=== PATIENT | female | born 1950 | race Caucasian/White ===

== ENCOUNTER → 2016-12-20 | Outpatient (CLI) | payer MEDICARE ==
[~2016-12-20] MED LIST: DENOSUMAB 60 MG/ML 1 ML SYRINGE SQ ONE
[2016-12-20 08:28] VITALS: BP 115/67; PULSE 72; RESP 16; TEMP 98.1
== END | disposition home or self-care (01) ==
LOC: PROCWHC3 07:35
PROVIDERS: ATTEND Physician Assistant Medical
DX: M81.0 Age-related osteoporosis without current pathological fracture (principal)
CPT/HCPCS: 96372; J0897

== ENCOUNTER → 2017-08-08 | Outpatient (CLI) | payer MEDICARE ==
[2017-08-08 10:31] VITALS: RESP 16
[2017-08-08 10:37] VITALS: BP 99/59; PULSE 84; TEMP 98
== END | disposition home or self-care (01) ==
LOC: PROCWHC3 10:24
PROVIDERS: ATTEND Family Medicine
DX: M81.0 Age-related osteoporosis without current pathological fracture (principal)
CPT/HCPCS: 96372; J0897

== ENCOUNTER → 2018-03-13 | Outpatient (CLI) | payer MEDICARE ==
[2018-03-13 13:44] VITALS: BP 99/52; PULSE 83; RESP 16; TEMP 97.4
== END | disposition home or self-care (01) ==
LOC: PROCWHC3 13:23
PROVIDERS: ATTEND Family Medicine
DX: M81.0 Age-related osteoporosis without current pathological fracture (principal)
CPT/HCPCS: 96372; J0897

== ENCOUNTER → 2018-08-08 | Day surgery (SDC) | payer MEDICARE ==
[2018-08-01 15:11] VITALS: BMI 17.2
[~2018-08-08] MED LIST changes: -DENOSUMAB 60 MG/ML 1 ML SYRINGE SQ ONE; +DEXAMETHASONE SOD PHOSPHATE 10 MG/ML 1 ML VIAL IV ONE; +HYDROmorphone (PF) 1 MG/ML ONE; +HYDROmorphone 0.5 MG/0.5 ML SYRINGE IVP PRN; +LACTATED RINGERS 1,000 ML IV ONE; +LACTATED RINGERS 1,000 ML IV SCH; +LIDOCAINE 1% 20 ML VIAL (10MG/ML) FOR IV START INTRADERMA PRN; +LIDOCAINE 1% INJ 10MG/ML (20 ML MDV) ONE; +LIDOCAINE 2%-EPI 1:100,000 20 ML VIAL ONE; +MIDAZOLAM 2 MG/2 ML VIAL IV PRN; +ONDANSETRON 4 MG/2 ML VIAL IVP ONE; +PHENYLEPHRINE-0.9% NACL SYG 1 MG/10 ML SYRINGE ONE; +PROPOFOL 10 MG/ML 20 ML VIAL IV ONE; +ROPIVACAINE 5 MG/ML 30 ML VIAL ONE; +SCOPOLAMINE 1.5MG/72HR PATCH TRANSDERM ONE; +SUCCINYLCHOLINE CHLORIDE 100 MG/5 ML SYR IV ONE; +ceFAZolin IN SWFI 2 GM/20 ML SYRINGE IVP ONE; +ePHEDrine SULFATE/0.9% NACL/PF 50 MG/5 ML SYRINGE IV ONE; +fentaNYL (PF) 50 MCG/ML 2 ML AMP IV ONE
--- NOTE | 2018-08-08 13:02 | P.ONQ ---
Anesthesiology Proc Note - PNB - Peripheral Nerve Block Performed Left Other (see comment) Time Out Performed: Yes Procedure Start Time: 12:02 Procedure Stop Time: 12:10 Indication: Acute Post-Operative Pain, Analgesia, Requested by physician Sedation Type: Sedate with meaningful contact maintained Preparation: Sterile Prep Position: Supine Catheter: None Needle Types: On-Q Needle Size: 50mm (2") Needle Gauge: 21 Technique: Ultrasound Injectate: Other (see comment) (0.5% ropivacaine with lidocaine 2% (10cc of each medication at each site)) Blood Aspirated: No Pain Paresthesia on Injection Noted: No Resistance on Injection: Normal Events: Uneventful and Well Tolerated
--- NOTE | 2018-08-08 15:16 | XR ---
Fluoroscopy INDICATION: Pain FINDINGS: Images obtained: 3. IMPRESSIONS: 1. Documentation of fluoroscopy.
--- NOTE | 2018-08-08 15:16 | FL ---
Fluoroscopy INDICATION: Pain FINDINGS: Fluoroscopy time: 3 minutes 7 seconds. Images obtained: 3. IMPRESSIONS: 1. Documentation of fluoroscopy.
[2018-08-08 15:48] VITALS: TEMP 97
[2018-08-08 17:04] VITALS: BP 120/70; PULSE 69; RESP 17
--- NOTE | 2018-08-12 13:17 | OP ---
OPERATIVE REPORT DATE OF SURGERY: 08/08/2018. PREOPERATIVE DIAGNOSES: 1. Left hyper mobile hallux valgus. 2. 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 3. History of smoking, having quit 2 months prior to surgery. POSTOPERATIVE DIAGNOSES: 1. Left hyper mobile hallux valgus. 2. 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 3. History of smoking, having quit 2 months prior to surgery. 4. Severe osteopenia and poor bone quality. PROCEDURE PERFORMED: 1. Correction of hallux valgus deformity with modified Lapidus procedure. 2. Correction of left 2nd crossover toe deformity with extensor tendon lengthening. 3. Application of short-leg splint by physician. SURGEON: Dr. Kevin Magdaleno. CREATIVE SERVICES PRODUCER: Bimal Fishman (Lori CRUZ was required as a skilled cataloging assistant for patient positioning, surgical exposure, correction of deformity, placement of hardware, closure of wound and application of splint). ANESTHESIA: General plus popliteal and saphenous nerve block. FLUIDS: 1200 mL crystalloid. BLOOD LOSS: Less than 5 mL. INDICATION: The patient is a very pleasant, previously healthy 68-year-old female with a medical history significant for smoking. I met with the patient earlier this fall for a painful hallux valgus deformity. Due to the patient's smoking, I recommended nonsurgical treatment unless she could quit smoking. The patient was able to quit smoking and after 2 months, she presented to my office to discuss surgical fixation of her hallux valgus. Since she had quit smoking for greater than 2 months, and she has failed over 6 months of nonsurgical treatment and is having significant pain and deformity from her hallux valgus, I think it is reasonable to proceed with surgery. We discussed different surgical options. We discussed, due to her deformity and hypermobility, my recommendation would be to perform a correction with modified Lapidus procedure. We discussed potential risks and complications of surgery including but not limited to risk of anesthesia, superficial infection, deep infection, delayed wound healing, nonunion of the fusion site, malunion of the fusion site, over correction of the deformity, under correction of the deformity, ongoing or worsening pain and inability to regain pre-injury level of function, symptomatic hardware, need for further surgery, DVT, PE, other medical complications, and possible loss of life or limb. The patient understands that if she resumes smoking, she is at a significantly increased risk of having complication. The patient provided her verbal and written consent to go forward with surgery. Acknowledging these risks and also acknowledges that there are other less common risks possible. DESCRIPTION OF THE PROCEDURE: The patient was identified in preoperative holding. The correct left leg was marked with my initials. I reviewed the consent form with the patient, her . All their questions were answered. The patient was then given a popliteal and saphenous nerve block by anesthesia. She was brought back to the operating room, positioned on the OR table. A general anesthetic and preoperative antibiotics were administered. A tourniquet was applied to the proximal aspect of the left leg. A bump was placed under the left buttock internally rotating the leg to neutral. The left leg was then prepped and draped in the standard sterile fashion. Prior to starting surgery, a time-out was performed identifying the correct patient, operative extremity, and procedure. The patient's leg was then elevated, exsanguinated with an Esmarch bandage and the tourniquet was inflated to 250 mmHg. I began by outlining a longitudinal incision directly over the 1st tarsometatarsal joint just medial to the EHL tendon. Skin incision made with a scalpel. Dissection was carried down carefully through the subcutaneous tissue with tenotomy scissors, taking care to not undermine the incision. The EHL tendon sheath was incised longitudinally in line with the skin incision and the EHL was retracted laterally. The capsule over the dorsal aspect of the 1st TMT joint was sharply elevated. A stab pocket was made just medial to the base of the 1st metatarsal for placement of the fulcrum. Attention was then turned distally to the 1st MTP joint. A 1 cm incision was made in the 1st web webspace. Dissection was carried down to the lateral aspect of the 1st MTP joint. A lateral release was performed releasing the lateral capsule and sesamoid suspensory ligament. A varus force was applied to the big toe nicely correcting and releasing the hallux valgus deformity. A K-wire was then placed at the base of the 1st metatarsal. I was able to gently correct the 1-2 intermetatarsal angle with minimal pressure. At this point, the pin started breaking through the 1st metatarsal base due to the patient's extremely poor bone quality. The cut guide was then placed over the 1st TMT joint to use as a marker and a stab incision was made just distal to the cut guide between the shafts of the 2nd and 3rd metatarsal. Blunt dissection was carried down through the subcutaneous tissue. The 1-2 intermetatarsal reduction clamp was then placed with the medial plastic sleeve over the 1st metatarsal and the lateral arm over the medial shaft of the 2nd metatarsal. Using the joystick in the 1st metatarsal base, I gently rotated the 1st metatarsal and when rotation was corrected, I tightened the 1-2 intermetatarsal reduction clamp nicely reducing the intermetatarsal angle and hallux valgus deformity. A K-wire was then placed. The joint seeker was placed in the lateral aspect of the 1st TMT joint. The low angle cut guide was placed and then pinned. A saw was used to remove the articular cartilage from the base of the 1st metatarsal and medial cuneiform. The cut guide was then removed. The joint distractor was then placed and and gentle distraction of the joint was attempted. Once again, the patient had significantly poor bone quality and the pin started pulling through her bone. The cut bone was then gently removed and the joint irrigated. All the bony debris was removed. I then used a 2.0 mm drill bit to thoroughly perforate the exposed bony surfaces of the fusion site. I then attempted to gently compress with the compression guide, but again due to her severely poor bone quality. I was unable to generate any significant compression with the compression device. I manually held the joint reduced and placed a K-wire for a cannulated partially-threaded 3-0 screw. A 36 mm partially-threaded 3.0 mm screw was placed across the joint. There were some compression achieved across the joint, but once again due to her severely poor bone quality, I did not try to push compression with the screw for fear of breaking the 1st metatarsal base. I then placed a dorsal and medial plate over the 1st TMT joint. X-rays were taken showing correction of the hallux valgus deformity, but a slight gap at the 1st tarsometatarsal joint. Due to the patient's poor bone quality, I left the hardware in place for fear of causing further iatrogenic damage to the joint. The bone graft was taken from the cut surface of the bone and packed in the fusion site to fill any voids. Clinically the toe appeared straight with only a small medial eminence. A small incision was made over the medial eminence of the 1st MTP joint. The capsule was sharply incised and a small microsagittal saw was used to contour the 1st metatarsal head. A small amount of the capsule was excised and the 1st MTP joint was imbricated to further correct the hallux valgus deformity. Clinically, the toe appeared straight. Fluoroscopic images showed coverage of the sesamoids and reduction of the intermetatarsal angle. At this point, there was only mild extension deformity of the 2nd toe. A small incision was made directly over the extensor tendon and a Z-lengthening was performed followed by an MTP capsulotomy. This allowed the toe to be positioned with the other toes. Final fluoroscopic images were taken. The wound was copiously irrigated and closed in layers. Due to the patient's poor bone quality, I elected to place her in a plaster splint. She was placed in a bulky Hensley splint with the ankle in neutral. She was then awoken from her anesthetic, transferred from the OR table to a gurney, brought back to PACU having tolerated the procedure well. MMODL / IJN: [id number] /
== END | disposition home or self-care (01) ==
LOC: OR 10:31
PROVIDERS: ATTEND Orthopaedic Surgery
DX: M20.12 Hallux valgus (acquired), left foot (principal); M20.5X2 Other deformities of toe(s) (acquired), left foot; M85.872 Other specified disorders of bone density and structure, left ankle and foot; E78.5 Hyperlipidemia, unspecified; Z87.891 Personal history of nicotine dependence; J43.9 Emphysema, unspecified; E07.9 Disorder of thyroid, unspecified; Z90.710 Acquired absence of both cervix and uterus; M81.0 Age-related osteoporosis without current pathological fracture; K21.9 Gastro-esophageal reflux disease without esophagitis; Z79.890 Hormone replacement therapy; Z79.899 Other long term (current) drug therapy
CPT/HCPCS: 64450; 73630; 28750; 28270; C1713; J2250; J1100; J2405; J2001; J3010; J1170; J2795; J2370; J0330; J2704; J0690

== ENCOUNTER → 2020-05-04 | Outpatient (CLI) | payer MEDICARE ==
--- NOTE | 2020-05-04 12:56 | NM ---
EXAMINATION TYPE: NM stress cardiolite complete DATE OF EXAM: 05/04/2020 COMPARISON: NONE HISTORY: Precordial chest pain and abnormal EKG TECHNIQUE: After the intravenous administration of 8.97 mCi Tc 99m Sestamibi - Rest images obtained 45 minutes post injection. The patient exercised using a BIENVENIDO protocol and 1 minute prior to peak exercise was injected with 24.5 mCi Tc 99m Sestamibi - Stress images obtained 35 minutes post injecti on. FINDINGS: Targeted heart rate was achieved during performance of the study. Review of stress and rest SPECT eliot ges demonstrates no distinct perfusion abnormality. Gated analysis shows normal wall motion with an estimated left ventricular ejection fraction of 79 %. IMPRESSION: No scintigraphic evidence for reversible ischemia
--- NOTE | 2020-05-05 12:19 | ECHOF ---
Referral Reason:R07.9 chest pain MEASUREMENTS -------- HEIGHT: 157.5 cm WEIGHT: 51.7 kg BP: RVIDd: 3.2 cm (< 3.3) IVSd: 1.0 cm (0.6 - 1.1) LVIDd: 3.3 cm (3.9 - 5.3) LVPWd: 1.0 cm (0.6 - 1.1) IVSs: 1.3 cm LVIDs: 2.1 cm LVPWs: 1.2 cm LAESV Index (A-L): 13.59 ml/m Ao Diam: 3.0 cm (2.0 - 3.7) AV Cusp: 1.8 cm (1.5 - 2.6) MV EXCURSION: 16.865 mm (> 18.000) MV EF SLOPE: 80 mm/s (70 - 150) EPSS: 0.8 cm MV E Mak: 0.91 m/s MV DecT: 236 ms MV A Mak: 1.10 m/s MV E/A Ratio: 0.83 RAP: 5.00 mmHg RVSP: 30.03 mmHg FINDINGS -------- This was a technically adequate study. The left ventricular size is normal. Left ventricular wall thickness is normal. Overall left vent ricular systolic function is normal with, an EF between 55 - 60 %. The diastolic filling pattern is normal for the age of the patient 12.66. The right ventricle is mildly enlarged. Normal LA size by volume 22+/-6 ml/m2. The right atrial size is normal. Interatrial and interventricular septum intact. The aortic valve is trileaflet and appears structurally normal. There is no evidence of aortic regu rgitation. There is no evidence of aortic stenosis. Mild mitral regurgitation is present. Mild tricuspid regurgitation present. There is no evidence of pulmonary hypertension. The right v entricular systolic pressure, as measured by Doppler, is 30.03mmHg. There is no pulmonic regurgitation present. The aortic root size is normal. Normal inferior vena cava with normal inspiratory collapse consistent with estimated right atrial pre ssure of 5 mmHg. There is no pericardial effusion. CONCLUSIONS -------- 1. The left ventricular size is normal. 2. Left ventricular wall thickness is normal. 3. Overall left ventricular systolic function is normal with, an EF between 55 - 60 %. 4. The right ventricle is mildly enlarged. 5. Mild mitral regurgitation is present. 6. Mild tricuspid regurgitation present. DEMOLITION CRANE OPERATOR: Tracy Davis RDCS
--- NOTE | 2020-05-05 15:58 | EST ---
EXERCISE STRESS AGE: 70 SEX: F HT: 5'2" WT: 114 lbs. PROTOCOL: Shayne STAGE: 2 DURATION OF EXERCISE: 4:32 HEART RATE REST: 69 BLOOD PRESSURE REST: 148/85 MAXIMUM HEART RATE ACHIEVED: 128 MAXIMUM BLOOD PRESSURE: 187/112 85% MPHR: 128 100% MPHR: 151 METS: 6.1 INDICATIONS: Chest pain. CLINICAL INFORMATION: Baseline heart rate is 69 beats per minute. Baseline blood pressure 148/85 mmHg. Baseline 12-lead ECG shows sinus rhythm with normal ST segments. Patient exercised on a Shayne protocol for 4-1/2 minutes achieving a peak heart rate of 128 beats per minute. There is a 0.5-[address] depression inferolaterally at peak exercise and into recovery. No symptoms were noted. IMPRESSION: Very low average exercise capacity with borderline 0.5-[address]-depression during peak exercise and recovery. MMANTELMOL / IJN: [id number] /
== END | disposition home or self-care (01) ==
LOC: RADNMMAIN 08:43
PROVIDERS: ATTEND Family Medicine
DX: I08.1 Rheumatic disorders of both mitral and tricuspid valves (principal)
CPT/HCPCS: 93017; 93306; 78452; A9500

== ENCOUNTER → 2023-03-19 | Outpatient (CLI) | payer MEDICARE ==
--- NOTE | 2023-03-19 15:04 | CTL ---
EXAMINATION TYPE: CT Low Dose Lung DATE OF EXAM: 03/19/2023 2:18 PM CLINICAL INDICATION:Female, 73 years old with history of Z87.891 personal hx of tobacco use; former s moker, quit 2 years ago. smoked 1/2 pack a day x 40years , history of tobacco use. COMPARISON: None. TECHNIQUE: Multiple axial non-contrast scans were obtained from approximately the lung apices through the upper abdomen. Coronal and sagittal reformatted images were obtained. Low dose technique was uti lized. CT DLP: 44.40 mGycm, Automated exposure control for dose reduction was used. CT Contrast: Contrast used: None Oral contrast used: None FINDINGS: ======== Lack of intravenous contrast and low dose technique limits the evaluation of the vascular and soft ti ssue structures. LUNGS: No evidence of pulmonary fibrosis. No evidence of focal consolidation, pneumothorax or pleural effusion. Centrilobular emphysema changes are seen throughout the lungs. Nodules: RUL: None. RML: None. RLL: Somewhat spiculated nodule measuring 11 x 8 mm. Series 4 image 112. SHAWNA: None. LLL: 3 mm image 139, 5 mm image 205 AIRWAY: Patent and unremarkable. HEART: Size within normal limits. MEDIASTINUM: No gross evidence of adenopathy. VASCULATURE: No aortic aneurysm. MUSCULOSKELETAL: No acute osseous abnormalities SOFT TISSUES/LYMPH NODES: Unremarkable. LOWER NECK: No significant findings. UPPER ABDOMEN: No significant findings. IMPRESSION: 1. Spiculated right lower lobe 11 x 8 mm pulmonary nodule, three-month follow-up versus PET/CT is re commended. 2. Left lower lung nodule measuring 5 mm. 3. Aavq-uf-nvorqjip emphysema CT LUNG RAD AND CT CHEST RECOMMENDATION: Lung-Rad 4A Suspicious: Follow-up 3 month LDCT or PET/CT may be used when there is a > 8 mm solid component. S Modifier (other clinically significant findings): None Recommend smoking cessation (if current smoker), or continuation of smoking cessation (if prior smoke r). Annual screening for lung cancer with low-dose computed tomography is recommended in adults ages 55 to 77 years who have a 30 pack-year smoking history and currently smoke or have quit within the pa st 15 years. Screening should be discontinued once a person has not smoked for 15 years or develops a health problem that substantially limits life expectancy or the ability or willingness to have curat itzel lung surgery.
== END | disposition home or self-care (01) ==
LOC: RADCTMAIN 13:33
PROVIDERS: ATTEND Family Medicine
DX: Z12.2 Encounter for screening for malignant neoplasm of respiratory organs (principal); J43.2 Centrilobular emphysema; Z87.891 Personal history of nicotine dependence; R91.8 Other nonspecific abnormal finding of lung field
CPT/HCPCS: 71271

== ENCOUNTER → 2023-09-03 | Outpatient (CLI) | payer MEDICARE ==
[2023-09-03 12:50] LABS: African American GFR (CKD) 77 (>60 ml/min/1.73 sqM); Blood Urea Nitrogen 26 mg/dL (7-17); Non-African American GFR(CKD) 67 (>60 ml/min/1.73 sqM)
--- NOTE | 2023-09-03 13:46 | CT ---
EXAMINATION TYPE: CT chest w con DATE OF EXAM: 09/03/2023 COMPARISON: PET/CT 04/19/2023 HISTORY: f/u pulmonary nodule CT DLP: 112.60 mGycm, Automated exposure control for dose reduction was used. CONTRAST: Performed injected with 90ml mL of Isovue 300. TECHNIQUE: Axial images were obtained at 5 mm thick sections. Reconstructed images are reviewed on Cardiio computer in the coronal plane. FINDINGS: Portion of the thyroid visualized is normal. There is a 0.6 cm nodule in the periphery of the lateral left lower lobe. Series 4 image 43. There is a prominent 1.1 cm lymph node in the pretracheal space or left peribronchial region. Series 3 image 22. Previous measurement of 0.9 cm. Additional smaller shotty lymphadenopathy is present. Th e ascending aorta diameter at the level of the main pulmonary artery is 3.2 cm. The main pulmonary a rtery diameter at the bifurcation is 2.3 cm. Minimal pericardial effusion is present. Limited CT sections are obtained through the upper abdomen. Abdomen is essentially unremarkable. IMPRESSION: 1. Prominent, slightly enlarged from comparison, lymph node within the mediastinum. 2. Stable appearing 0.6 cm nodule peripheral left lower lobe.
== END | disposition home or self-care (01) ==
LOC: RADCTMAIN 12:09
PROVIDERS: ATTEND Internal Medicine Critical Care Medicine
DX: R91.1 Solitary pulmonary nodule (principal); R59.0 Localized enlarged lymph nodes
CPT/HCPCS: 82565; 84520; 71260; 36415; Q9967

== ENCOUNTER → 2024-03-04 | Outpatient (CLI) | payer MEDICARE ==
[2024-03-04 10:56] LABS: African American GFR (CKD) 72 (>60 ml/min/1.73 sqM); Blood Urea Nitrogen 18 mg/dL (7-17); Non-African American GFR(CKD) 63 (>60 ml/min/1.73 sqM)
--- NOTE | 2024-03-04 11:41 | CT ---
EXAMINATION TYPE: CT chest w con CT DLP: 371 mGycm, Automated exposure control for dose reduction was used. DATE OF EXAM: 03/04/2024 11:21 AM COMPARISON: CT chest 09/03/2023, PET/CT 04/19/2023, CT low-dose lung 03/19/2023. CLINICAL INDICATION:Female, 74 years old with history of R91.1 SOLITARY PULMONARY NODULE; [facility], f/u no allisones TECHNIQUE: Multiple axial images were obtained through the chest following the administration of 100 cc of Isovue 300. . Coronal and sagittal reformats reviewed. FINDINGS: LUNGS/ PLEURA: No pleural effusion, pneumothorax, focal consolidation. Linear scarring identified wit hin the right midlung. Mild centrilobular emphysematous changes. Stable 3 mm pulmonary nodule within the medial aspect of the left lower lobe (series 4, image 24). Stable left lateral lower lobe 5 mm p ulmonary nodule (series 4, image 42). Previously seen spiculated right lower lobe pulmonary nodule is no longer visualized. No right perihilar mass identified corresponding to previous PET/CT. No new or enlarging pulmonary nodules. AIRWAY: Patent and unremarkable.. HEART: Size within normal limits. No pericardial effusion. MEDIASTINUM: Stable enlarged subcarinal lymph node measuring 1.3 cm short axis (series 3, image 27). Stable enlarged left paratracheal lymph node measuring 1.1 cm short axis (series 3, image 22). No new lymphadenopathy. VASCULATURE: No aortic aneurysm. MUSCULOSKELETAL: No acute osseous abnormalities. No aggressive osseous lesions. Multilevel degenerati ve disc disease. SOFT TISSUES/LYMPH NODES: Unremarkable. LOWER NECK: No significant findings. UPPER ABDOMEN: Stable left periaortic mild prominent lymph nodes measuring up to 9 mm short axis (ser ies 3, image 60). IMPRESSION: Overall unchanged examination with mildly enlarged mediastinal lymph nodes and stable few pulmonary n odules measuring up to 5 mm. No new or enlarging pulmonary nodules.
== END | disposition home or self-care (01) ==
LOC: RADCTMAIN 09:57
PROVIDERS: ATTEND Internal Medicine Critical Care Medicine
DX: R91.1 Solitary pulmonary nodule (principal); R91.8 Other nonspecific abnormal finding of lung field; R59.0 Localized enlarged lymph nodes
CPT/HCPCS: 82565; 84520; 71260; 36415; Q9967

== ENCOUNTER → 2024-06-05 | Outpatient (CLI) | payer MEDICARE ==
--- NOTE | 2024-06-08 12:41 | MM ---
Reason for Exam: Screening (asymptomatic). Patient History: Menarche at age 15. First Full-Term at age 22. Hysterectomy at age 31. Postmenopausal. Risk Values: Lina 5 year model risk: 1.4%. NCI Lifetime model risk: 3.6%. Prior Study Comparison: No prior studies available for comparison. Tissue Density: There are scattered areas of fibroglandular density. Findings: Analyzed By CAD. Right breast: Multiple masses are seen in the right breast the first upper outer aspect 8.8 cm the nipple measuring 7 mm. second posterior nipple line 1.7 cm from the nipple measuring 7 mm. The third 4.7 cm the nipple in the inferior medial aspect measuring 9 mm. Left breast: There is no suspicious group of microcalcifications or new suspicious mass. Overall Assessment: Incomplete: need additional imaging evaluation, BI-RAD 0 Management: Diagnostic Breast Ultrasound of the right breast. [facility] will attempt to contact patient to return for supplemental views and ultrasound if indicated. Patient should continue monthly self-breast exams. A clinical breast exam by your physician is recommended on an annual basis. This exam should not preclude additional follow-up of suspicious palpable abnormalities. Note on Lina scores and lifetime risk: 1. A Lina score greater than 3% is considered moderate risk. If this is the case, consider specialist referral to assess eligibility for a risk reducing agent. 2. If overall lifetime risk for the development of breast cancer is 20% or higher, the patient may qualify for future screening with alternating mammogram and breast MRI. [facility], , 06/08/2024 12:38 PM. Electronically signed and approved by: Misbah Napier DO
== END | disposition home or self-care (01) ==
LOC: RADMAMWWP 07:58
PROVIDERS: ATTEND Family Medicine
CPT/HCPCS: 77063; 77067

== ENCOUNTER → 2024-06-11 | Outpatient (CLI) | payer MEDICARE ==
--- NOTE | 2024-06-11 09:20 | USB ---
Reason for Exam: Additional evaluation requested from abnormal screening. Patient History: Menarche at age 15. First Full-Term at age 22. Hysterectomy at age 31. Postmenopausal. Risk Values: Lina 5 year model risk: 1.4%. NCI Lifetime model risk: 3.6%. Technique: Method: Targeted. Doppler: Color. Patient Position: LPO. Prior Study Comparison: 06/05/2024 Bilateral MG 3D screening mammo w/cad, [facility]. Findings: The upper outer quadrant of the right breast, the upper inner quadrant of the right breast, the lateral section of the breast of the right breast, the periareolar of the right breast, the axilla of the right breast and the retroareolar of the right breast were scanned. Targeted ultrasound left breast 3-4 o'clock, upper outer quadrant, behind the nipple, and axilla. In the superior subareolar region labeled 12:00, 2 cm from the nipple, there is a circumscribed, oval hypoechoic structure with posterior through transmission measuring 7 x 6 x 4 mm this should be reassessed at follow-up, likely mammographic correlate. At the 3:00 position, 1 cm from the nipple, there is a cyst cluster measuring 9 x 7 x 8 mm, mammographic correlate for which follow-up is recommended. At the 4:00 position, 4 cm from the nipple, there is a 3 mm hypoechoic lesion too small to characterize, likely tiny cyst and likely mammographic correlate. No abnormality identified at the 9:00 position to correspond to the mammographic density. Benign appearing axillary lymph nodes. Overall Assessment: Incomplete: need additional imaging evaluation, BI-RAD 0 Management: Special View Mammogram of the right breast. For further workup of the 9:00 focal asymmetry [facility], , 06/11/2024 9:17 AM. Electronically signed and approved by: Rebecca Rao M.D. Radiologist
--- NOTE | 2024-06-11 09:56 | MM ---
Reason for Exam: Additional evaluation requested from abnormal screening. Last screening mammogram was performed less than 1 month ago. Patient History: Menarche at age 15. First Full-Term at age 22. Hysterectomy at age 31. Postmenopausal. Risk Values: Lina 5 year model risk: 1.4%. NCI Lifetime model risk: 3.6%. Prior Study Comparison: 06/05/2024 Bilateral MG 3D screening mammo w/cad, [facility]. Tissue Density: Right: There are scattered areas of fibroglandular density. Findings: Analyzed By CAD. Subareolar anterior nodularity, 3:00 middle depth nodularity, and smaller 4 mm posterior nodularity are all redemonstrated on the lateral view. The question nodular focal asymmetry posterior ninth and 10:00 becomes less defined and appears to disperse suggesting focal fibroglandular tissue. Follow-up of nodularity recommended. Overall Assessment: Probably benign, BI-RAD 3 Management: Diagnostic Mammogram of the right breast in 6 months. Diagnostic Breast Ultrasound of the right breast in 6 months. Results were given to the patient verbally at the time of exam. Patient should continue monthly self-breast exams. A clinical breast exam by your physician is recommended on an annual basis. This exam should not preclude additional follow-up of suspicious palpable abnormalities. Note on Lina scores and lifetime risk: 1. A Lina score greater than 3% is considered moderate risk. If this is the case, consider specialist referral to assess eligibility for a risk reducing agent. 2. If overall lifetime risk for the development of breast cancer is 20% or higher, the patient may qualify for future screening with alternating mammogram and breast MRI. [facility], , 06/11/2024 9:46 AM. Electronically signed and approved by: Rebecca Rao M.D. Radiologist
== END | disposition home or self-care (01) ==
LOC: RADUSWWP 08:42
PROVIDERS: ATTEND Family Medicine
CPT/HCPCS: 77061; 77065

== ENCOUNTER → 2024-12-02 | Outpatient (CLI) | payer MEDICARE ==
[2024-12-02 10:17] LABS: African American GFR (CKD) >90 (>60 ml/min/1.73 sqM); Blood Urea Nitrogen 18 mg/dL (7-17); Non-African American GFR(CKD) 79 (>60 ml/min/1.73 sqM)
--- NOTE | 2024-12-02 13:26 | CT ---
EXAMINATION TYPE: CT chest w con CT DLP: 113.5 mGycm, Automated exposure control for dose reduction was used. DATE OF EXAM: 12/02/2024 11:06 AM COMPARISON: CT chest 03/04/2024, 09/03/2023, CT low-dose lung 03/19/2023, PET/CT 04/19/2023 CLINICAL INDICATION:Female, 74 years old with history of R91.1 SOLITARY PULMONARY NODULE; PHH, ABNORM AL FINDINGS ON LUNG FIELD, PULMONARY NODULE TECHNIQUE: Multiple axial images were obtained through the chest following the administration of 100 cc of Isovue 300. . Coronal and sagittal reformats reviewed. FINDINGS: LUNGS/ PLEURA: No pleural effusion, pneumothorax, focal consolidation. Linear scarring identified wit hin the right midlung. Mild centrilobular emphysematous changes. Stable 3 mm pulmonary nodule within the medial aspect of the left lower lobe (series 4, image 24). Stable left lateral lower lobe 5 mm p ulmonary nodule (series 4, image 42). No new or enlarging pulmonary nodules. AIRWAY: Patent and unremarkable.. HEART: Size within normal limits.Trace anterior pericardial effusion. No significant coronary arteria l calcifications. MEDIASTINUM: Marginal increase in size of enlarged subcarinal lymph node measuring 1.6 cm short axis (series 3, image 35). Previously 1.3 cm. Marginal increase in size of enlarged left paratracheal lymp h node measuring 1.3 cm short axis (series 3, image 22). Previously 1.1 cm. No new lymphadenopathy. VASCULATURE: No aortic aneurysm. MUSCULOSKELETAL: No acute osseous abnormalities. No aggressive osseous lesions. Multilevel degenerati ve disc disease. SOFT TISSUES/LYMPH NODES: Unremarkable. LOWER NECK: No significant findings. UPPER ABDOMEN: Stable prominent gastrohepatic lymph node measuring 0.8 cm short axis. Increased size of paracaval lymph node measuring 1 short axis, previously measured 0.8 cm. IMPRESSION: 1. Stable 2 left lower lobe pulmonary nodules the largest measuring to 5 mm. No new or enlarging pul monary nodules. 2. Marginal increase in size of enlarged mediastinal and right pericaval lymph nodes with stable gas trohepatic lymph node. These lymph nodes are nonspecific. Consider tissue sampling versus short-term follow-up examination in 3 months. [facility], , 12/02/2024 1:24 PM
== END | disposition home or self-care (01) ==
LOC: RADCTMAIN 09:12
PROVIDERS: ATTEND Internal Medicine Critical Care Medicine
DX: R91.8 Other nonspecific abnormal finding of lung field (principal); R59.0 Localized enlarged lymph nodes
CPT/HCPCS: 82565; 84520; 71260; 36415; Q9967

== ENCOUNTER → 2025-03-04 | Outpatient (CLI) | payer MEDICARE ==
[2025-03-04 14:07] LABS: African American GFR (CKD) >90 (>60 ml/min/1.73 sqM); Blood Urea Nitrogen 21 mg/dL (7-17); Non-African American GFR(CKD) 85 (>60 ml/min/1.73 sqM)
--- NOTE | 2025-03-04 15:04 | CT ---
EXAMINATION TYPE: CT chest w con CT DLP: 322 mGycm, Automated exposure control for dose reduction was used. DATE OF EXAM: 03/04/2025 2:33 PM COMPARISON: CT chest 12/02/2024, 03/04/2024, 09/03/2023, CT low-dose lung 03/19/2023, PET/CT 04/19/2023 CLINICAL INDICATION:Female, 75 years old with history of R91.1 SOLITARY PULMONARY NODULE R91.8 ABN [place] NG FIN; PHH, follow up, abnormal lung findings TECHNIQUE: Multiple axial images were obtained through the chest following the administration of 100 cc of Isovue 300. . Coronal and sagittal reformats reviewed. FINDINGS: LUNGS/ PLEURA: No pleural effusion, pneumothorax, focal consolidation. Linear scarring identified wit hin the right midlung and lingula. Mild centrilobular emphysematous changes. Stable 2.7 mm pulmonary nodule within the medial aspect of the left lower lobe (series 4, image 23). Stable left lateral low er lobe 5 mm pulmonary nodule (series 4, image 42). Stable medial right lower lobe 1.6 mm pulmonary n odule (series 4, image 45). No new or enlarging pulmonary nodules. AIRWAY: Patent and unremarkable.. HEART: Size within normal limits.Trace anterior pericardial effusion. No significant coronary arteria l calcifications. MEDIASTINUM: Stable size of enlarged subcarinal lymph node measuring 1.5 cm short axis (series 3, eliot ge 26). Previously 1.6 cm. Stable size of enlarged left paratracheal lymph node measuring 1.3 cm shor t axis (series 3, image 21). Previously 1.3 cm. Similar subcentimeter left epicardial lymph nodes. No new lymphadenopathy. VASCULATURE: No aortic aneurysm. MUSCULOSKELETAL: No acute osseous abnormalities. No aggressive osseous lesions. Mild multilevel degen erative disc disease. SOFT TISSUES/LYMPH NODES: Unremarkable. LOWER NECK: No significant findings. UPPER ABDOMEN: Stable prominent gastrohepatic lymph node measuring 0.9 cm short axis. Stable mildly e nlarged paracaval lymph node measuring 1 cm short axis. Enlarged prominent left pericolic lymph nodes measuring up to 0.9 cm short axis. Partial visualization of right anterior mid kidney 1.9 cm simple appearing cyst. No follow-up recommended. IMPRESSION: 1. Stable left lower lobe pulmonary nodules with largest measuring to 5 mm. No new or enlarging pul monary nodules. 2. Stable nonspecific mediastinal and upper abdominal enlarged lymph nodes. Consider further evaluati on with PET/CT versus continued surveillance. 3. Mild emphysematous changes. [facility], , 03/04/2025 3:02 PM
== END | disposition home or self-care (01) ==
LOC: RADCTMAIN 12:40
PROVIDERS: ATTEND Family Medicine
DX: R91.1 Solitary pulmonary nodule (principal); R91.8 Other nonspecific abnormal finding of lung field; R59.9 Enlarged lymph nodes, unspecified; J43.9 Emphysema, unspecified
CPT/HCPCS: 82565; 84520; 71260; 36415; Q9967